=== PATIENT | female | born 1985 | race Caucasian/White ===

== ENCOUNTER → 2018-04-03 10:01 | Outpatient (CLI) | payer OTHER, SELFPAY ==
--- NOTE | 2018-04-03 10:01 | DT_ITS ---
This patient was seen during an EMR downtime March 27, 2018 - April 03, 2018. This patient may have a combination of paper and electronic documentation or all paper documentation. All documentation is viewable within the e-chart portion of [facility] for each patient visit.
== END ==
PROVIDERS: Visit Provider Obstetrics & Gynecology
DX: N91.2 Amenorrhea, unspecified (principal)
CPT/HCPCS: 36415; 84702

== ENCOUNTER → 2018-04-18 11:27 | Outpatient (CLI) | payer OTHER, SELFPAY ==
[2018-04-18 15:19] LABS: Chlamydia Trachomatis by PCR Negative (Negative); Neisserai gonorrhoeae by PCR Negative (Negative); Probe Check PASS; Sample Adequacy Control PASS; Specimen Processing Control PASS
[2018-04-20 08:57] LABS: HPV APTIMA, High Risk Negative (Negative)
== END ==
PROVIDERS: Visit Provider Obstetrics & Gynecology
DX: Z32.01 Encounter for pregnancy test, result positive (principal); Z12.4 Encounter for screening for malignant neoplasm of cervix; Z11.3 Encounter for screening for infections with a predominantly sexual mode of transmission
CPT/HCPCS: 87491; 87591; 88175; G0145

== ENCOUNTER → 2018-05-19 13:50 | Outpatient (CLI) | payer OTHER, SELFPAY ==
[2018-05-19 15:51] LABS: Color, Urine Yellow (Yellow); Glucose, Dipstick 250 mg/dl (Normal); Ketone-Dipstick 5 mg/dl (Negative); Leukocyte Esterase-Dipstick Negative /ul (Negative); Nitrite-Dipstick Negative (Negative); Occult Blood-Urine Negative /ul (Negative); Protein-Dipstick 15 mg/dl (Negative); Urine Bilirubin Dipstick Negative (Negative); Urine Clarity Clear (Clear); Urine Urobilinogen Normal (Normal)
[2018-05-19 16:17] LABS: Thyroid Stim Hormone (TSH) 0.53 uIU/mL (0.358-3.74)
[2018-05-19 16:30] LABS: Absolute Lymphocyte Count 1.36 X10^3/ul (0.83-4.51); Absolute Neutrophil Count 7.2 X10^3/uL (2.0-7.7); Basophil# 0.01 X10^3/uL; Basophil% 0.1 % (0-1); Eosinophil# 0.06 X10^3/uL; Eosinophils% 0.7 % (0-5); Hematocrit 35.2 % (37-47); Hemoglobin 12.1 g/dl (12.0-15.0); Lymphocyte # 1.36 X10^3/ul (4.0); Lymphocyte % 14.8 % (19-41); Mean Corp Hgb Conc 34.4 g/gl (32-36); Mean Corpuscular Hgb 30.5 pg (27.0-32.0); Mean Corpuscular Volume 88.7 fL (81-99); Mean Platelet Vol. 11.3 fl (6.2-12.0); Monocyte# 0.57 X10^3/uL; Monocyte% 6.2 % (0-10); Neutrophil # 7.16 X10^3/uL (2.7-7.7); Neutrophil % 78.1 % (47-70); Platelet Count 212 K/mm3 (150-450); RBC Distribution Width CV 11.8 % (11.6-14.6); RBC Distribution Width SD 38.2 fl (35.1-43.9); Red Blood Count 3.97 M/mm3 (4.2-5.4); White Blood Count 9.2 K/mm3 (4.4-11.0)
[2018-05-19 16:34] LABS: Amphetamine Urine VISTA NEGATIVE (<1000 ng/mL); Barbiturate Urine VISTA NEGATIVE (< 200 ng/mL); Benzodiazepine Urine VISTA NEGATIVE (< 200 ng/mL); Cocaine Urine VISTA NEGATIVE (< 300 ng/mL); Ecstacy Urine VISTA NEGATIVE (< 500 ng/mL); Methadone Urine VISTA NEGATIVE (< 300 ng/mL); PCP Urine VISTA NEGATIVE (< 25 ng/mL); THC Urine VISTA NEGATIVE (< 50 ng/mL); Vista UDS pH Range 6
[2018-05-19 16:46] LABS: POSITIVE COUNT NO; POSITIVE DIFFERENTIAL NO; POSITIVE MORPHOLOGY NO
[2018-05-19 17:01] LABS: HIV - WCH Non-Reactive (Nonreactive); Rubella IgG 35.5 IU/mL
[2018-05-21 13:26] LABS: HEPATITIS B SURFACE AG Negative (Negative); Hep C Antibodies 0.1 s/co ratio (0.0-0.9)
[2018-05-23 14:46] LABS: Glucose 107 mg/dL (74-106)
[2018-05-23 14:58] LABS: Hemoglobin A1c 4.7 % (4.2-6.3)
[2018-05-26 00:18] LABS: Prenatal RPR NONREACTIVE (NONREACTIVE)
== END ==
PROVIDERS: Visit Provider Obstetrics & Gynecology
DX: Z34.81 Encounter for supervision of other normal pregnancy, first trimester (principal)
CPT/HCPCS: 36415; 80307; 81002; 82947; 83036; 84443; 85025; 86703; 86762; 86803; 87340

== ENCOUNTER → 2018-08-01 08:58 | Outpatient (CLI) | payer OTHER, SELFPAY ==
[2018-08-01 12:11] LABS: Free T3 2.4 pg/mL (2.18-3.98)
== END ==
PROVIDERS: Visit Provider Obstetrics & Gynecology
DX: E03.9 Hypothyroidism, unspecified (principal)
CPT/HCPCS: 36415; 84439; 84443; 84481

== ENCOUNTER → 2018-08-29 08:38 | Outpatient (CLI) | payer OTHER, SELFPAY ==
[2018-08-29 10:30] LABS: Hematocrit 36.7 % (37-47); Hemoglobin 12.1 g/dl (12.0-15.0); Mean Corpuscular Hgb 30.4 pg (27.0-32.0); Mean Corpuscular Volume 92.2 fL (81-99); Mean Platelet Vol. 11.3 fl (6.2-12.0); Platelet Count 159 K/mm3 (150-450); RBC Distribution Width CV 12.8 % (11.6-14.6); RBC Distribution Width SD 41.4 fl (35.1-43.9); Red Blood Count 3.98 M/mm3 (4.2-5.4); White Blood Count 8.9 K/mm3 (4.4-11.0)
[2018-08-29 10:31] LABS: Scan Indicated on CBC? Y/N NO
[2018-08-29 10:39] LABS: Glucose Challenge Gest 1H 50g 68 mg/dL (70-140)
== END ==
PROVIDERS: Visit Provider Obstetrics & Gynecology
DX: Z34.83 Encounter for supervision of other normal pregnancy, third trimester (principal)
CPT/HCPCS: 36415; 82950; 85027

== ENCOUNTER → 2018-10-12 13:52 | Outpatient (CLI) | payer OTHER, SELFPAY | PROVIDERS: Family Provider Family Medicine; PCP Family Medicine; Visit Provider Obstetrics & Gynecology | DX: Z36.85 Encounter for antenatal screening for Streptococcus B (principal) | CPT/HCPCS: 87081 ==

== ENCOUNTER → 2018-10-18 10:07 | Outpatient (CLI) | payer OTHER, SELFPAY ==
[2018-10-18 14:01] LABS: Thyroid Stim Hormone (TSH) 1.58 uIU/mL (0.358-3.74)
== END ==
PROVIDERS: Visit Provider Obstetrics & Gynecology
DX: O99.280 Endocrine, nutritional and metabolic diseases complicating pregnancy, unspecified trimester (principal); E03.9 Hypothyroidism, unspecified; Z3A.00 Weeks of gestation of pregnancy not specified
CPT/HCPCS: 36415; 84443

== ENCOUNTER 2018-11-10 10:10 | Inpatient (IN) | payer OTHER, SELFPAY ==
[2018-11-10 10:20] VITALS: BMI 23.1
[2018-11-10] MEDS: Lactated Ringers 1,000 ML 50 ML IV ×3 (10:44→18:07)
[2018-11-10] MEDS: Oxytocin 30 units/NS 500 ml 30 UNITS/500 ML IV.SOLN IV (11:22)
[2018-11-10 11:25] LABS: Hematocrit 33.8 % (37-47); Hemoglobin 11.1 g/dl (12.0-15.0); Mean Corp Hgb Conc 32.8 g/gl (32-36); Mean Corpuscular Hgb 29.1 pg (27.0-32.0); Mean Corpuscular Volume 88.7 fL (81-99); Mean Platelet Vol. 11.7 fl (6.2-12.0); Platelet Count 154 K/mm3 (150-450); RBC Distribution Width CV 12.6 % (11.6-14.6); RBC Distribution Width SD 39.2 fl (35.1-43.9); Red Blood Count 3.81 M/mm3 (4.2-5.4); Scan Indicated on CBC? Y/N NO; White Blood Count 7.9 K/mm3 (4.4-11.0)
[2018-11-10] MEDS: fentaNYL-bupivacaine (epidural) 100 ML BAG EPIDURAL ×2 (14:35→19:18)
[2018-11-10] MEDS: Ondansetron 4 MG/2 ML Vial IV (18:48)
[2018-11-10] MEDS: Oxytocin 30 units/NS 500 ml 30 UNITS/500 ML IV.SOLN 334 UNITS IV (20:23)
[2018-11-10] MEDS: Oxytocin 30 units/NS 500 ml 30 UNITS/500 ML IV.SOLN 167 UNITS IV (20:53)
--- NOTE | 2018-11-10 21:04 | PCM.OB.VAG ---
- Problem List (1) 39 weeks gestation of Status: Acute (2) (spontaneous vaginal delivery) Status: Acute Vaginal Delivery Method of Induction: Pitocin, Amniotomy Amniotic Membrane Rupture Type: Artificial Rupture of Membrane time: 11/10/18 1245h Amniotic Fluid Description: Clear Final BRITANY: 11/15/18 Final BRITANY Source: US <20 weeks Gestational age: 39 Weeks and 2 Days doctor who attended delivery (if requested by OB): Hernesto Corley Date of Procedure: 11/10/18 Pre-Operative Diagnosis: 39 2/7wga, Post-Operative Diagnosis: 39 2/7wga Surgery/ Procedure Performed: Spontaneous Vaginal Delivery Anesthesiologist: Vincent Edwards Type of Anesthesia: Epidural Description of Procedure: Patient was FD/+3 station on my arrival. FHR was Category II. She pushed to delivery a vigorous male infant. The was placed on the maternal abdomen and further attended by nursery personnel and the Pediatric Hospitalist. The cord was doubly clamped and cut at approximately 4 to 5 minutes of life. Cord gases and cord blood was obtained. The placenta delivered spontaneously and appeared intact on inspection. A second degree perineal laceration with vaginal extension was repaired with 3-0 Vicryl Rapide with excellent hemostasis. Sponge and needle counts were correct x 2. Presentation: Vertex Placental Delivery Description: Spontaneous Placenta Disposition: [facility] Cord Vessel Description: 3 Vessels Nuchal Cord Compression: Without compression Cord Gases drawn per routine: ABG, VBG Cord Entanglement: None Drain: Garcia to straight drain Estimated Blood Loss: 350 ml Infant A gender: Male (1 minute): 8 (5 minute): 9 Episiotomy Description: None Laceration: Midline, Perineal Extension/lac, 2nd degree Medications given after delivery: IV Pitocin Complications: None
--- NOTE | 2018-11-10 21:15 | DCINST_ITS ---
Discharge Diet: No Restrictions Discharge Activity: Return to Normal Activity, May Shower, May Take a Tub Bath Lifting Restrictions: 20 lb Call your doctor if you observe: Fever of 101 or Higher, Inability to urinate, Inability to have a bowel movement, Using more than one pad per hour, Shortness of breath, Chest pain, Calf discomfort, Uncontrolled pain Suture Line Care: Avoid Pulling/Pushing Additional Instructions: If you experience any of the following, contact your healthcare provider. * Bleeding that soaks a pad every hour for 2 hours * Fever 100.4 or higher * Unrelieved incision or abdominal pain * Swelling, redness, discharge or bleeding from your incision or episiotomy site * Your incision begins to separate * Problems urinating (including inability to urinate or burning while urinating). * Visual changes * Severe headache * Flu-like symptoms * Pain or redness in one of both of your breasts * Pain, warmth, tenderness or swelling in your legs, especially the calf area * Frequent nausea and vomiting * Symptoms of depression or anxiety If you experience any of the following, call 911 or go to the nearest Emergency Room. * Chest pain * Problems breathing * Seizure activity * Partial or complete paralysis of a body part, slurred speech, weakness or drooping of the face, or a sudden inability to walk or hold your balance Allergies/Adverse Reactions: Allergies No Known Allergies Allergy (Verified 03/19/17 14:06) Medications to take at Discharge Cholecalciferol (Vitamin D3) [Vitamin D3] 15 ml PO DAILY 03/18/17 Vits [Prenatabs FA ] 1 tab PO DAILY 03/18/17 Docusate Sodium [Colace] 100 mg PO DAILY PRN PRN #60 capsule 11/10/18 Ibuprofen 600 mg PO TID PRN #30 tablet 11/10/18 Levothyroxine [Synthroid] 25 mcg PO DAILY@0600 11/10/18 The following prescriptions were given: Docusate Sodium [Colace] 100 mg PO DAILY PRN PRN #60 capsule PRN Reason: Constipation Ibuprofen 600 mg PO TID PRN #30 tablet PRN Reason: Pain Please Follow Up With: Zahra Dooley MD When: 7-10 days and 6 weeks Primary Care Physician: Johan Tolliver DO [Primary Care Provider] - Test Results: Test results from this visit will be discussed in further detail at your follow- up appointment, if applicable.
[2018-11-10] MEDS: 0.9% Saline Lock 10 ML Syringe IV (21:51)
[2018-11-11] VITALS: BP 128/86; PULSE 86; RESP 16; TEMP 36.3; O2SAT 100
[2018-11-11 03:50] VITALS: BP 117/65; PULSE 77; RESP 16; TEMP 36.7
[2018-11-11] MEDS: Ibuprofen 600 MG Tablet PO ×3 (04:01→20:45)
[2018-11-11 08:05] VITALS: BP 140/93; PULSE 80; RESP 16; TEMP 36.6
[2018-11-11] MEDS: Senna/Docusate Sodium 1 Tablet PO (08:19)
[2018-11-11] MEDS: Levothyroxine 25 MCG TABLET PO (08:19)
[2018-11-11] MEDS: Acetaminophen 325 MG Tablet PO ×2 (08:19→17:22)
--- NOTE | 2018-11-11 10:37 | PCM.PN.OB ---
Patient Problems: Active and Suspected Problems 39 weeks gestation of (Acute) (spontaneous vaginal delivery) (Acute) Subjective: No issues overnight. Infant latched and nurses well. Perineum is sore, but pain manageable. OOB and no difficulty voiding. Denies heavy lochia. Objective: AVSS - Physical Exam General: Alert, Oriented x3, Cooperative, No apparent distress HEENT: Atraumatic, Normocephalic Lungs: Clear to auscultation, Normal air movement Cardiovascular: Regular rate, Regular Rhythm, Normal S1, Normal S2 Abdomen: Bowel Sounds Present, Soft, Non Tender, Non-Distended, - - Fundus firm and nontender, lochia scant Extremities: No edema, No Calf Tenderness Neurological: Neuro grossly intact Psych/Mental Status: Normal Affect, Appropriate, Alert and oriented to time, place, person, mood and affect Vital Signs Temp Pulse Resp BP Pulse Ox 97.9 F 80 16 140/93 H 100 11/11/18 08:05 11/11/18 08:05 11/11/18 08:05 11/11/18 08:05 11/11/18 00:00 Oxygen Delivery Method Room Air Weight: 65.9 kg Body Mass Index (BMI) 23.1 Intake and Output for Last 24 Hours 11/09/18 11/10/18 11/11/18 23:59 23:59 23:59 Intake Total 2711 / 2711 Output Total 900 / 900 2230 / 2230 Balance 1811 / 1811 -2230 / -2230 Laboratory Tests Past 24 Hrs 11/10/18 11/10/18 10:45 10:45 WBC 7.9 RBC 3.81 L Hgb 11.1 L Hct 33.8 L MCV 88.7 MCH 29.1 MCHC 32.8 RDW 12.6 RDW Differential 39.2 Plt Count 154 MPV 11.7 Blood Type O POSITIVE Antibody Screen NEGATIVE Medical Necessity - Tobacco Use Smoking Status: Never smoker Assessment/Plan All Active Problems 39 weeks gestation of (Acute) (spontaneous vaginal delivery) (Acute) Foot drop, left (Resolved) 33yo PPD#1 s/p doing well. -Rubella immune, O positive - -Routine care
[2018-11-11 12:10] VITALS: BP 135/81; PULSE 98; RESP 14; TEMP 36.8
[2018-11-11 16:10] VITALS: BP 139/84; PULSE 87; RESP 14; TEMP 36.5
[2018-11-11 19:30] VITALS: BP 142/82; PULSE 71; RESP 15; TEMP 37.2; O2SAT 100
[2018-11-12 02:57] VITALS: BP 118/83; PULSE 87; RESP 16; TEMP 36.6; O2SAT 100
[2018-11-12] MEDS: Acetaminophen 325 MG Tablet PO ×3 (02:59→18:31)
[2018-11-12] MEDS: Ibuprofen 600 MG Tablet PO ×3 (06:50→20:27)
[2018-11-12 08:55] VITALS: BP 125/92; PULSE 91; RESP 16; TEMP 36.5
[2018-11-12] MEDS: Levothyroxine 25 MCG TABLET PO (09:26)
--- NOTE | 2018-11-12 10:46 | PCM.PN.OB ---
Patient Problems: Active and Suspected Problems 39 weeks gestation of (Acute) (spontaneous vaginal delivery) (Acute) Subjective: Feels well. Denies headache, vision changes, heavy lochia, abdominal pain. Infant transferred to special care nursery overnight for hypoglycemia. Objective: avss - Physical Exam General: Alert, Oriented x3, Cooperative, No apparent distress HEENT: Atraumatic, Normocephalic Lungs: Clear to auscultation, Normal air movement Cardiovascular: Regular rate, Regular Rhythm, Normal S1, Normal S2 Abdomen: Soft, Non Tender, Non-Distended, - - Fundus firm and nontender Extremities: No edema, No Calf Tenderness Neurological: Neuro grossly intact Psych/Mental Status: Normal Affect, Appropriate, Alert and oriented to time, place, person, mood and affect Vital Signs Temp Pulse Resp BP Pulse Ox 97.7 F L 91 16 125/92 H 100 11/12/18 08:55 11/12/18 08:55 11/12/18 08:55 11/12/18 08:55 11/12/18 02:57 Oxygen Delivery Method Room Air Weight: 65.9 kg Body Mass Index (BMI) 23.1 Intake and Output for Last 24 Hours 11/10/18 11/11/18 11/12/18 23:59 23:59 23:59 Intake Total 2711 / 2711 Output Total 900 / 900 2230 / 2230 Balance 1811 / 1811 -2230 / -2230 Medical Necessity - Tobacco Use Smoking Status: Never smoker Assessment/Plan All Active Problems 39 weeks gestation of (Acute) (spontaneous vaginal delivery) (Acute) Foot drop, left (Resolved) 33yo PPD#2 s/p doing well. -Rubella immune, O positive - -Routine care -d/c home today - will d/c to hotel if infant not discharged
[2018-11-12] MEDS: Senna/Docusate Sodium 1 Tablet PO (14:22)
[2018-11-12 14:25] VITALS: BP 116/73; PULSE 97; RESP 14; TEMP 36.4
[2018-11-12 20:26] VITALS: BP 126/80; PULSE 74; RESP 16; TEMP 36.9; O2SAT 97
--- OUTSIDE RECORDS SUMMARY | 2019-01-14 18:38 | XMS RPT_ITS ---
:1985 Author Organization OHIP Support Name Relationship Address Phone WAYCOL Unavailable [address] + [place] [address] CAMEJO LEX Unavailable [address] + [place] [address] WAYCOL Unavailable [address] + [place] [address] CAMEJO LEX Unavailable [address] + [place] [address] WAYCOL Unavailable [address] + [place] [address] CAMEJO LEX Unavailable [address] + [place] [address] WAYCOL Unavailable [address] + [place] [address] CAMEJO LEX Unavailable [address] + [place] [address] WAYCOL Unavailable [address] + [place] [address] CAMEJO LEX Unavailable [address] + [place] [address] WAYCOL Unavailable [address] + [place] [address] CAMEJO LEX Unavailable [address] + [place] [address] WAYCOL Unavailable [address] + [place] [address] CAMEJO LEX Unavailable [address] + [place] [address] WAYCOL Unavailable [address] + [place] [address] NELL LEX Unavailable [address] + [place] [address] NONE, PER Unavailable Unavailable Unavailable NONE, PER Unavailable Unavailable Unavailable SHAQUILLE CAMEJO Unavailable [address] + [place] [address] Care Team Providers Name Role Phone RACHEL , CHRISTIAN Gricelda Attending Unavailable UNRULY BLOCK, DR. DELMY Morris Primary Care Unavailable Lyn-Gabriel, Summer Attending Unavailable Lyn-Gabriel, Summer Attending Unavailable Lyn-Gabriel, Summer Attending Unavailable Unruly, Delmy Primary Care Unavailable Lyn-Gabriel, Summer Admitting Unavailable Lyn-Gabriel, Summer Attending Unavailable Lyn-Gabriel, Summer Referring Unavailable Unruly, Delmy Primary Care Unavailable Lyn-Gabriel, Summer Attending Unavailable Lyn-Gabriel, Summer Attending Unavailable Lyn-Gabriel, Summer Attending Unavailable Lyn-Gabriel, Summer Attending Unavailable PROBLEMS PROBLEMS DATE TYPE CONDITION / CODE ATTENDING STATUS SOURCE 10/18/2018 Unknown E03.9 - Soumya, Active [place] Hypothyroidism, [facility] unspecified / Hospital E03.9(ICD-10) Repository 10/18/2018 Unknown Z34.81 - Encounter Soumya Active [place] for supervision of [facility] other normal Hospital , first Repository trimester / Z34.81(ICD-10) 08/29/2018 Unknown Z34.83 - Encounter Soumya Active [place] for supervision of [facility] other normal Hospital , third Repository trimester / Z34.83(ICD-10) 04/18/2018 Unknown Z32.01 - Encounter Soumya Active [place] for test, [facility] result positive / Hospital Z32.01(ICD-10) Repository 04/18/2018 Unknown Z12.4 - Encounter Soumya Active [place] for screening for [facility] malignant neoplasm Hospital of cervix / Repository Z12.4(ICD-10) 04/18/2018 Unknown Z11.3 - Encounter Soumya Active [place] for screening for [facility] infections with a Hospital predominantly Repository sexual mode of transmission / Z11.3(ICD-10) 04/20/2018 Unknown N91.2 - Amenorrhea, Soumya Active [place] unspecified / [facility] N91.2(ICD-10) Hospital Repository PROCEDURES PROCEDURES No Procedure Records FoundRESULTS RESULTS DISCHARGE INSTRUCTION Observed: 11/12/2018 Status: F Source: [place] 10:14 AM [facility] REPOSITORY [facility] Medical Records Department [address] [place] [address] Instructions for Home/Discharge Instructions 11/10/182112 MR#: [id number] Acct: [id number] Name: LEANNA CAMEJO Rep #: [id number] : 1985 33 From: Zahra Rios MD PCP: Delmy Tolliver DO Status: ADM IN Discharge Diet: No Restrictions Discharge Activity: Return to Normal Activity, May Shower, May Take a Tub Bath Lifting Restrictions: 20 lb Call your doctor if you observe: Fever of 101 or Higher, Inability to urinate, Inability to have a bowel movement, Using more than one pad per hour, Shortness of breath, Chest pain, Calf discomfort, Uncontrolled pain Suture Line Care: Avoid Pulling/Pushing Additional Instructions: If you experience any of the following, contact your healthcare provider. * Bleeding that soaks a pad every hour for 2 hours * Fever 100.4 or higher * Unrelieved incision or abdominal pain * Swelling, redness, discharge or bleeding from your incision or episiotomy site * Your incision begins to separate * Problems urinating (including inability to urinate or burning while urinating). * Visual changes * Severe headache * Flu-like symptoms * Pain or redness in one of both of your breasts * Pain, warmth, tenderness or swelling in your legs, especially the calf area * Frequent nausea and vomiting * Symptoms of depression or anxiety If you experience any of the following, call 911 or go to the nearest Emergency Room. * Chest pain * Problems breathing * Seizure activity * Partial or complete paralysis of a body part, slurred speech, weakness or drooping of the face, or a sudden inability to walk or hold your balance Allergies/Adverse Reactions: Allergies No Known Allergies Allergy (Verified 03/19/17 14:06) Medications to take at Discharge Cholecalciferol (Vitamin D3) [Vitamin D3] 15 ml PO DAILY 03/18/17 Vits [Prenatabs FA ] 1 tab PO DAILY 03/18/17 Docusate Sodium [Colace] 100 mg PO DAILY PRN PRN #60 capsule 11/10/18 Ibuprofen 600 mg PO TID PRN #30 tablet 11/10/18 Levothyroxine [Synthroid] 25 mcg PO DAILY@0600 11/10/18 The following prescriptions were given: Docusate Sodium [Colace] 100 mg PO DAILY PRN PRN #60 capsule PRN Reason: Constipation Ibuprofen 600 mg PO TID PRN #30 tablet PRN Reason: Pain Please Follow Up With: Zahra Dooley MD When: 7-10 days and 6 weeks Primary Care Physician: Delmy Tolliver DO [Primary Care Provider] - Test Results: Test results from this visit will be discussed in further detail at your follow-up appointment, if applicable. 11/12/18 1014 <Electronically signed by Zahra Dooley MD> Date Zahra Dooley MD CC: DO Delmy Tolliver Signed OPERATIVE REPORT Observed: 11/10/2018 Status: F Source: [place] 9:09 PM [facility] REPOSITORY [facility] Medical Records Department [address] [place] [address] Operative Report 11/10/18 210 MR#: [id number] Acct: [id number] Name: LEANNA CAMEJO Rep #: [id number] : 1985 33 From: Zahra Rios MD PCP: Delmy Tolliver DO Status: ADM IN Location: [id number] - Problem List (1) 39 weeks gestation of Status: Acute (2) (spontaneous vaginal delivery) Status: Acute Vaginal Delivery Method of Induction: Pitocin, Amniotomy Amniotic Membrane Rupture Type: Artificial Rupture of Membrane time: 11/10/18 1245h Amniotic Fluid Description: Clear Final BRITANY: 11/15/18 Final BRITANY Source: US <20 weeks Gestational age: 39 Weeks and 2 Days [place] doctor who attended delivery (if requested by OB): Hernesto Corley Date of Procedure: 11/10/18 Pre-Operative Diagnosis: 39 2/7wga, Post-Operative Diagnosis: 39 2/7wga Surgery/ Procedure Performed: Spontaneous Vaginal Delivery Anesthesiologist: Vincent Edwards Type of Anesthesia: Epidural Description of Procedure: Patient was FD/+3 station on my arrival. FHR was Category II. She pushed to delivery a vigorous male . The infant was placed on the maternal abdomen and further attended by nursery personnel and the Pediatric Hospitalist. The cord was doubly clamped and cut at approximately 4 to 5 minutes of life. Cord gases and cord blood was obtained. The placenta delivered spontaneously and appeared intact on inspection. A second degree perineal laceration with vaginal extension was repaired with 3-0 Vicryl Rapide with excellent hemostasis. Sponge and needle counts were correct x 2. Presentation: Vertex Placental Delivery Description: Spontaneous Placenta Disposition: [facility] Cord Vessel Description: 3 Vessels Nuchal Cord Compression: Without compression Cord Gases drawn per routine: ABG, VBG Cord Entanglement: None Drain: Garcia to straight drain Estimated Blood Loss: 350 ml Infant A gender: Male (1 minute): 8 (5 minute): 9 Episiotomy Description: None Laceration: Midline, Perineal Extension/lac, 2nd degree Medications given after delivery: IV Pitocin Complications: None 11/10/182108 <Electronically signed by Zahra Dooley MD> Date Zahra Dooley MD CC: DO Delmy Tolliver; Zahra Dooley MD Signed CBC-COMPLETE BLOOD CNT Collected: 11/10/2018 Status: F Source: [place] NO DIFF 10:45 AM [facility] REPOSITORY TYPE CODE TESTS RESULT OUT OF RANGE REFERENCE UNITS LAB L100.1000 4.4-11.0 K/mm3 Normal WBC 7.9 LAB L100.1200 4.2-5.4 M/mm3 Low RBC 3.81 LAB L100.1300 12.0-15.0 g/dl Low HGB 11.1 LAB L100.1400 37-47 % Low HCT 33.8 LAB L100.1500 81-99 fL Normal MCV 88.7 LAB L100.1600 27.0-32.0 pg Normal MCH 29.1 LAB L100.1700 32-36 g/gl Normal MCHC 32.8 LAB L100.1810 11.6-14.6 % Normal RDW CV 12.6 LAB L100.1820 35.1-43.9 fl Normal RDW SD 39.2 LAB L100.1900 150-450 K/mm3 Normal PLT 154 LAB L100.2000 6.2-12.0 fl Normal MPV 11.7 Performed By: #### L100.0500 #### [facility] [address] [place], [address] TYPE AND SCREEN Collected: 11/10/2018 Status: F Source: [place] 10:45 AM [facility] REPOSITORY Order Comment: Reason for Type AND Screen/Red Cells: ROUTINE TYPE CODE TESTS RESULT OUT OF RANGE REFERENCE UNITS LAB B10.0800 O Normal BLOOD TYPE GEL POSITIVE LAB B100.4000 Normal Antibody NEGATIVE Screen Performed By: #### B101.7450 #### [facility] [address] [place], [address] THYROID STIM HORMONE Collected: 10/18/2018 Status: F Source: [place] (TSH) 10:09 AM [facility] REPOSITORY TYPE CODE TESTS RESULT OUT OF RANGE REFERENCE UNITS LAB L501.9520 0.358-3.74 uIU/mL Normal TSH 1.58 Performed By: #### L501.9520 #### [facility] [address] [place], [address] Observed: 10/12/2018 Status: F Source: [place] CULTURE, GROUP B 1:54 PM [facility] STREPTOCOCCUS REPOSITORY NUSRAT Culture Group B Beta Streptococcus is not isolated. Performed By: #### M100.1800 #### [facility] [address] [place], [address] CBC-COMPLETE BLOOD CNT Collected: 08/29/2018 Status: F Source: [place] NO DIFF 8:45 AM [facility] REPOSITORY TYPE CODE TESTS RESULT OUT OF RANGE REFERENCE UNITS LAB L100.1000 4.4-11.0 K/mm3 Normal WBC 8.9 LAB L100.1200 4.2-5.4 M/mm3 Low RBC 3.98 LAB L100.1300 12.0-15.0 g/dl Normal HGB 12.1 LAB L100.1400 37-47 % Low HCT 36.7 LAB L100.1500 81-99 fL Normal MCV 92.2 LAB L100.1600 27.0-32.0 pg Normal MCH 30.4 LAB L100.1700 32-36 g/gl Normal MCHC 33.0 LAB L100.1810 11.6-14.6 % Normal RDW CV 12.8 LAB L100.1820 35.1-43.9 fl Normal RDW SD 41.4 LAB L100.1900 150-450 K/mm3 Normal PLT 159 LAB L100.2000 6.2-12.0 fl Normal MPV 11.3 Performed By: #### L100.0500 #### [facility] [address] [facility] [place], [address] GLUCOSE CHALLENGE GEST Collected: 08/29/2018 Status: F Source: [place] 1H 50G 8:45 AM [facility] REPOSITORY TYPE CODE TESTS RESULT OUT OF RANGE REFERENCE UNITS LAB L501.0250 70-140 mg/dL Low GLU GEST 68 50g 1H Performed By: #### L501.0250 #### [facility] [address] [place], [address] FREE T3 Collected: 08/01/2018 Status: F Source: [place] 9:06 AM [facility] REPOSITORY TYPE CODE TESTS RESULT OUT OF RANGE REFERENCE UNITS LAB L501.97835 2.18-3.98 pg/mL Normal FREE T3 2.4 Performed By: #### L501.69583, L501.9520, L506.0400 #### [facility] [address] [place], [address] THYROID STIM HORMONE Collected: 08/01/2018 Status: F Source: [place] (TSH) 9:06 AM [facility] REPOSITORY TYPE CODE TESTS RESULT OUT OF RANGE REFERENCE UNITS LAB L501.9520 0.358-3.74 uIU/mL Normal TSH 1.20 Performed By: #### L501.43543, L501.9520, L506.0400 #### [facility] [address] [place], [address] T4 FREE DIRECT Collected: 08/01/2018 Status: F Source: [place] 9:06 AM [facility] REPOSITORY TYPE CODE TESTS RESULT OUT OF RANGE REFERENCE UNITS LAB L506.0400 0.76-1.46 ng/dL Normal T4 FREE 1.00 DIRECT Performed By: #### L501.05118, L501.9520, L506.0400 #### [facility] [address] [place], [address] HEMOGLOBIN A1C Collected: 05/23/2018 Status: F Source: [place] 1:52 PM [facility] REPOSITORY Order Comment: PLEASE PULL H135 AND ADD A1C TO PREVIOUS BLOOD DRAWN. TYPE CODE TESTS RESULT OUT OF RANGE REFERENCE UNITS LAB L501.9985 4.2-6.3 % Normal HGB A1C 4.7 Performed By: #### L501.9985 #### [facility] [address] [place], [address] URINE DRUG SCREEN Collected: 05/19/2018 Status: F Source: [place] (VISTA) 1:52 PM [facility] REPOSITORY Order Comment: List of Drugs Taken or Suspected? UNK TYPE CODE TESTS RESULT OUT OF RANGE REFERENCE UNITS LAB L505.0075 TO BE Normal CONFIRMED Result Comment: CONFIRMATORY TESTING FOR ALL POSITIVE URINE DRUG SCREEN RESULTS WILL ONLY BE SENT OUT UPON PHYSICIAN ORDER. VISTA Urine Drug Screen methods provide only preliminary analytical test results. A more specific alternate chemical method must be used in order to obtain a confirmed analytical result. Gas chromatography/mass spectrometery (GC/MS) is the preferred confirmatory method. Clinical consideration and professional judgement should be applied to any drug of abuse test result, particularly when preliminary positive results are used. URINE TCA TESTING MUST BE ORDERED SEPARATELY. USE TEST MNEMONIC: [facility] LAB L505.5005 VISTA UDS PH 6 Normal LAB L505.5015 <1000 ng/mL AMPHETAMINES Normal NEGATIVE LAB L505.5025 < 200 ng/mL BARBITIURATES Normal NEGATIVE LAB L505.5035 < 200 ng/mL BENZODIAZIPINE Normal NEGATIVE LAB L505.5045 < 300 ng/mL COCAINE Normal NEGATIVE LAB L505.5055 < 500 ng/mL ECSTACY Normal NEGATIVE LAB L505.5065 < 300 ng/mL METHADONE Normal NEGATIVE LAB L505.5075 < 300 ng/mL OPIATES Normal NEGATIVE LAB L505.5085 < 25 ng/mL PCP Normal NEGATIVE LAB L505.5095 < 50 ng/mL THC Normal NEGATIVE Performed By: #### L505.5000 #### [facility] [address] [place], [address] URINALYSIS, ROUTINE Collected: 05/19/2018 Status: F Source: [place] (DIPSTICK) 1:52 PM [facility] REPOSITORY Order Comment: How was Urine Obtained? Urine, Random TYPE CODE TESTS RESULT OUT OF RANGE REFERENCE UNITS LAB L400.3000 Yellow COLOR Normal Yellow LAB L400.3050 Clear Normal CLARITY Clear LAB L400.3200 Normal mg/dl High GLUCOSE, UR 250 LAB L400.3300 Negative mg/dL Normal BILIRUBIN URINE Negative LAB L400.3400 Negative mg/dl High 5 KETONE UR LAB L400.3465 1.002-1.030 Normal SP.GR. DIPSTX 1.020 LAB L400.3550 5.0 - 8.0 pH UR Normal 5.0 LAB L400.3600 Negative mg/dl High PROT 15 DIPSTX LAB L400.3700 Normal mg/dl Normal UROBILI Normal LAB L400.3750 Negative Normal NITRITE UR Negative LAB L400.3780 Negative /ul Normal OCCULT BLOOD-UR Negative LAB L400.3800 Negative /ul LEUK Normal ESTERASE Negative Performed By: #### L400.2010 #### [facility] [address] [facility] [place], [place], [address] THYROID STIM HORMONE Collected: 05/19/2018 Status: F Source: [place] (TSH) 1:52 PM [facility] REPOSITORY Order Comment: PLEASE ADD TO BLOOD IN LAB. RACK FG4 4 L TYPE CODE TESTS RESULT OUT OF RANGE REFERENCE UNITS LAB L501.9520 0.358-3.74 uIU/mL Normal TSH 0.53 Performed By: #### L501.9520, L501.0100 #### [facility] [address] [facility], [address] GLUCOSE Collected: 05/19/2018 Status: F Source: [place] 1:52 PM [facility] REPOSITORY Order Comment: PLEASE ADD TO BLOOD IN LAB. RACK FG4 4 L TYPE CODE TESTS RESULT OUT OF RANGE REFERENCE UNITS LAB L501.0100 74-106 mg/dL High GLU 107 Result Comment: Fasting Glucose result from 100 to 125 mg/dL suggests IMPAIRED HOMEOSTASIS per A.D.A. criteria. Please note revised GLUCOSE reference range effective 2017. Performed By: #### L501.9520, L501.0100 #### [facility] [address] [place], [address] CBC W/DIFF, AUTOMATED Collected: 05/19/2018 Status: F Source: [place] 1:52 PM [facility] REPOSITORY TYPE CODE TESTS RESULT OUT OF RANGE REFERENCE UNITS LAB L100.1000 4.4-11.0 K/mm3 Normal WBC 9.2 LAB L100.1200 4.2-5.4 M/mm3 Low RBC 3.97 LAB L100.1300 12.0-15.0 g/dl Normal HGB 12.1 LAB L100.1400 37-47 % Low HCT 35.2 LAB L100.1500 81-99 fL Normal MCV 88.7 LAB L100.1600 27.0-32.0 pg Normal MCH 30.5 LAB L100.1700 32-36 g/gl Normal MCHC 34.4 LAB L100.1810 11.6-14.6 % Normal RDW CV 11.8 LAB L100.1820 35.1-43.9 fl Normal RDW SD 38.2 LAB L100.1900 150-450 K/mm3 Normal PLT 212 LAB L100.2000 6.2-12.0 fl Normal MPV 11.3 LAB L100.2100 47-70 % High NEUT% 78.1 LAB L100.2200 19-41 % Low LY% 14.8 LAB L100.2300 0-10 % Normal MONO% 6.2 LAB L100.2400 0-5 % Normal EO% 0.7 LAB L100.2500 0-1 % Normal BASO% 0.1 LAB L100.2550 0.0-0.9 % Normal IM GRAN % 0.100 Result Comment: IG% - Immature Granulocytes (promyelocytes, myelocytes and metamyelocytes) > 1% indicates that a LEFT SHIFT is Present. LAB L100.2620 2.0-7.7 X10 3/uL Normal Absolute Neut 7.2 LAB L100.2720 0.83-4.51 X10 3/ul Normal Absolute Lymph 1.36 Performed By: #### L100.0100 #### [facility] [address] [facility] [place], [place], [address] RUBELLA IGG Collected: 05/19/2018 Status: F Source: [place] 1:52 PM [facility] REPOSITORY TYPE CODE TESTS RESULT OUT OF RANGE REFERENCE UNITS LAB L509.4000 IU/mL Normal Rubella IgG 35.5 Result Comment: Antibody results Interpretation of Immune Status < 5 IU/ml Presumed Non-immune 5 - < 10 IU/ml Equivocal > or = 10 IU/ml Presumed Immune Performed By: #### L509.4000, L3890.6005 #### [facility]. [facility] [address] HIV - [facility] Collected: 05/19/2018 Status: F Source: [place] 1:52 PM [facility] REPOSITORY TYPE CODE TESTS RESULT OUT OF RANGE REFERENCE UNITS LAB L3890.6005 Nonreactive Normal HIV - [facility] Non-Reactive Performed By: #### L509.4000, L3890.6005 #### [facility] [place], [place], [id number] T AND S-NO Collected: 05/19/2018 Status: F Source: [place] CHARGE W/PNP 1:52 PM [facility] REPOSITORY Order Comment: Reason for Type AND Screen/Red Cells: Surgery? N TYPE CODE TESTS RESULT OUT OF RANGE REFERENCE UNITS LAB B10.0800 O Normal BLOOD POSITIVE TYPE GEL LAB B100.4050 Normal Ab SCREEN NEGATIVE GEL Performed By: #### B100.7550 #### [facility] [place], [place], [id number] HEPATITIS B SURFACE Collected: 05/19/2018 Status: F Source: [place] AG 1:52 PM [facility] REPOSITORY TYPE CODE TESTS RESULT OUT OF RANGE REFERENCE UNITS LAB L3100.0400 Negative Normal HB Negative SURF AG Result Comment: Performed at: [address], [place] [id number] Exploitation Analyst: Pipe Beckham PhD, Phone: [phone] Performed By: #### L3100.0390, L3100.0625 #### [facility] (refer to report for specific site) refer to report for address and phone number HEPATITIS C ANTIBODIES Collected: 05/19/2018 Status: F Source: [place] 1:52 PM [facility] REPOSITORY TYPE CODE TESTS RESULT OUT OF RANGE REFERENCE UNITS LAB L3100.0650 0.0-0.9 s/co ratio Normal HEP C AB 0.1 Result Comment: Negative: < 0.8 Indeterminate: 0.8 - 0.9 Positive: > 0.9 The CDC recommends that a positive HCV antibody result be followed up with a HCV Nucleic Acid Amplification test (322698). Performed By: #### L3100.0390, L3100.0625 #### [facility] (refer to report for specific site) refer to report for address and phone number RPR Collected: 05/19/2018 Status: F Source: [place] 1:52 PM [facility] REPOSITORY TYPE CODE TESTS RESULT OUT OF REFERENCE UNITS RANGE LAB L700.5100 NONREACTIVE Normal RPR NONREACTIVE Performed By: #### L700.5100 #### [facility] [address] [place], [place], [address] CT/NG [facility] BY PCR Collected: 04/18/2018 Status: F Source: [place] 9:30 AM [facility] REPOSITORY TYPE CODE TESTS RESULT OUT OF RANGE REFERENCE UNITS LAB L8200.2100 Negative Normal Chlam Negative Trac PCR LAB L8200.2200 Negative Normal NG by Negative PCR Performed By: #### L8200.2000 #### [facility] [address] [facility] [place], [place], [address] PAP IG HPV APTIMA Collected: 04/18/2018 Status: F Source: [place] 16/18,45 9:30 AM [facility] REPOSITORY Order Comment: CYTOLOGY INFORMATION: - CLINICAL INFORMATION: - DATE LMP/MENOPAUSE: 02/08/18 LMP - COLLECTION VIAL: Thin Prep Vial - CORD CUTTER SOURCE: CERVICAL/ENDOCERVICAL - COLLECTION TECHNIQUE: BRUSH/SPATULA Specimen Comment: [id number] Specimen Comment: No. of containers..01 ThinPrep Vial TYPE CODE TESTS RESULT OUT OF RANGE REFERENCE UNITS LAB L7400.0800 . Normal DIAGN Comment Result Comment: NEGATIVE FOR INTRAEPITHELIAL LESION AND MALIGNANCY. LAB L7400.0900 . Normal ADEQ Comment Result Comment: Satisfactory for evaluation. Endocervical and/or squamous metaplastic cells (endocervical component) are present. LAB L7400.1400 . Normal PERFORM Comment Result Comment: Kandi Felipe, Principal Solutions Architect LAB L7400.2575 . Normal TEST METHOD Comment Result Comment: This liquid based ThinPrep(R) pap test was screened with the use of an image guided system. LAB L7400.2600 . Normal . COMM LAB L7400.2700 . Normal PAPSMR Comment Result Comment: The Pap smear is a screening test designed to aid in the detection of premalignant and malignant conditions of the uterine cervix. It is not a diagnostic procedure and should not be used as the sole means of detecting cervical cancer. Both false-positive and false-negative reports do occur. LAB L7400.2760 Negative Normal HPV APTIMA, Negative HR Result Comment: This test detects fourteen high-risk HPV types (16/18/31/33/35/39/45/ 51/52/56/58/59/66/68) without differentiation. Performed at: - [facility] [id number] Exploitation Analyst: Elva Pitts MD, Phone: [phone] Performed at: =[facility] [id number] Exploitation Analyst: Elva Pitts MD, Phone: [phone] Performed By: #### L7400.0280 #### [facility] (refer to report for specific site) refer to report for address and phone number DOWNTIME REPORT Observed: 04/13/2018 Status: F Source: [place] 2:11 PM [facility] REPOSITORY [facility] Medical Records Department [address] [place] [address] Downtime Report MR#: [id number] Acct: [id number] Name: NELLLEANNA Rep #: [id number] : 1985 33 From: [place] PCP: Status: REG CLI This patient was seen during an EMR downtime March 27, 2018 - April 03, 2018. This patient may have a combination of paper and electronic documentation or all paper documentation. All documentation is viewable within the e-chart portion of [employer] for each patient visit. HCG TITER QUANT., Collected: 04/03/2018 Status: F Source: [place] SERUM 10:09 AM [facility] REPOSITORY TYPE CODE TESTS RESULT OUT OF RANGE REFERENCE UNITS LAB L700.8000 <9 non-preg mIU/mL High HCG 94173 QUANT. Performed By: #### L700.8000 #### [facility] [address] [place], [place], [address] CMP Collected: 03/31/2018 Status: F Source: [facility] 9:20 AM [facility] REPOSITORY TYPE CODE TESTS RESULT OUT OF REFERENCE UNITS RANGE LAB GLU(LOINC) 70-105 mg/dL Glucose Level 85 LAB NA(LOINC) 136-146 mEq/L Sodium Level 137 LAB K(LOINC) 3.5-5.1 mEq/L Potassium Level 4.6 LAB CL(LOINC) 98-107 mEq/L Chloride 104 LAB CO2(LOINC) 22-29 mEq/L CO2 28 LAB EBAL(LOINC mEq/L ) Electrolyte Balance 5.0 LAB BUN(LOINC) 7.0-18.0 mg/dL BUN 11.5 LAB CRE(LOINC) 0.6-1.2 mg/dL Creatinine Lvl (s) 0.8 LAB BC(LOINC) 7-27 ratio BUN/Creatinine 14 Ratio LAB CA(LOINC) 8.4-10.2 mg/dL Calcium Lvl 9.3 LAB PROT(LOINC 6.0-8.3 G/dL ) Total Protein 6.4 LAB ALB(LOINC) 3.5-5.0 G/dL Albumin Level 4.2 LAB GLB(LOINC) G/dL Globulin 2.2 LAB AG(LOINC) 1.1-2.5 ratio A/G Ratio 1.9 LAB BILT(LOINC 0.2-1.0 mg/dL ) Bili Total High 1.3 LAB AP(LOINC) 40-135 IU/L Alk Phos 97 LAB AST(LOINC) 10-40 IU/L AST/SGOT 15 LAB ALT(LOINC) 10-35 IU/L ALT/SGPT 12 Performed By: #### CMP, GFR, TSH #### [place] [address] [place], [place] [address] #### VIDH #### [place] [id number] [place] [address] .GFR Collected: 03/31/2018 Status: F Source: [facility] 9:20 AM [facility]ATION REPOSITORY TYPE CODE TESTS RESULT OUT OF REFERENCE UNITS RANGE LAB GFRAA(LOINC ml/min/1.73 ) sqm GFR 109 Israeli Result Comment: GFR Population mean for , Non- Americans Ages 20-29 = 116 mL/min/1.73 sq.m. Ages 30-39 = 107 mL/min/1.73 sq.m. Ages 40-49 = 99 mL/min/1.73 sq.m. Ages 50-59 = 93 mL/min/1.73 sq.m. Ages 60-69 = 85 mL/min/1.73 sq.m. Ages 70+ = 75 mL/min/1.73 sq.m. Chronic Kidney Disease: Less than 60 mL/min/1.73 square meters End Stage Renal Disease: Less than 15 mL/min/1.73 square meters LAB GFRNO(LOINC) ml/min/1.73sqm GFR Non- >60 Result Comment: GFR Population mean for , Non- Americans Ages 20-29 = 116 mL/min/1.73 sq.m. Ages 30-39 = 107 mL/min/1.73 sq.m. Ages 40-49 = 99 mL/min/1.73 sq.m. Ages 50-59 = 93 mL/min/1.73 sq.m. Ages 60-69 = 85 mL/min/1.73 sq.m. Ages 70+ = 75 mL/min/1.73 sq.m. Chronic Kidney Disease: Less than 60 mL/min/1.73 square meters End Stage Renal Disease: Less than 15 mL/min/1.73 square meters Performed By: #### CMP, GFR, TSH #### [place] [place], [place] [address] #### VIDH #### [place] [address] VIDH Collected: 03/31/2018 Status: F Source: [facility] 9:20 AM [facility] [place] REPOSITORY TYPE CODE TESTS RESULT OUT OF RANGE REFERENCE UNITS LAB VIDH(LOINC) ng/mL Vit. D 45 25-Hydroxy Result Comment: Interpretive Values Based on Total 25(OH)D: Severe Deficiency <20 ng/mL Mild to Moderate Deficiency 20-30 ng/mL Optimum Levels 30-100 ng/mL Toxicity Possible >100 ng/mL Performed By: #### CMP, GFR, TSH #### [place] [address] #### VIDH #### [place] [address] TSH Collected: 03/31/2018 Status: F Source: [facility] 9:20 AM [facility] [place] REPOSITORY TYPE CODE TESTS RESULT OUT OF RANGE REFERENCE UNITS LAB TSH(LOINC) 0.27-4.20 mcIU/mL TSH 0.76 Performed By: #### CMP, GFR, TSH #### [place] [address] #### VIDH #### [place] [address] ALLERGIES ALLERGIES DATE TYPE / CODE NAME / CODE REACTION SEVERITY SOURCE 03/19/2017 Drug No Known Unknown [facility] Allergy/4160 Allergies/F00 [facility] [address](SNOMED [id number](RXNOR Repository CT) M) ENCOUNTERS ENCOUNTERS ADMIT/DISCHARGE ACCOUNT NUMBER ADMITTING ENCOUNTER LOCATION SOURCE CLASS 11/10/2018/11/12/19 [id number] [facility] Inpatient [facility] summer Encounter [facility] ding:WPRoom: Repository [id number]: 1 10/18/2018 [id number] Ambulatory [facility] ding:LABSPEC Repository 10/12/2018 [id number] [facility] ding:WOBLAB Repository 08/29/2018 [id number] [facility] ding:WOBLAB Repository 08/01/2018 [id number] [facility] ding:WOBLAB Repository 05/19/2018 [id number] Ambulatory [facility] ding:WOBLAB Repository 04/18/2018 [id number] Ambulatory [facility] ding:LABSPEC Repository 04/03/2018 [id number] Ambulatory [facility] ding:WOBLAB Repository 03/31/2018/03/31/20 [id number] Ambulatory [address] ding:OLAB [facility] Repository PAYERS PAYERS ENCOUNTER GUARANTOR PAYER SUBSCRIBER SOURCE 11/10/2018 LEANNA [place] Primary LEX WOLFDOB: [place] [id number] [address] Insurance:MEDICAL [id number] [address]Hbg: (330) Number: Repository [phone] () [id number] Date:0172-16-27CC [place] [phone]: 11/10/2018 Secondary NOT GIVENUNK [place] Insurance:SELF PAY [facility] Number: Effective Repository Date:2018-09-26 10/18/2018 LEANNA [place] Primary LEX WOLFDOB: [place] [id number] [place]IM[place] Insurance:MEDICAL [id number] [address]Aen: (330) Number: Repository [phone] () [id number] Date:4848-08-87PK[place] [phone]: 10/18/2018 Secondary NOT GIVENUNK [place] Insurance:SELF PAY [facility] Number: Effective Repository Date:2018-10-18 10/12/2018 LEANNA [place] Primary LEX WOLFDOB: [place] [id number] [place]IM[place] Insurance:MEDICAL [id number] [address]Otd: (330) Number: Repository [phone] () [id number] Date:5487-72-21DP [place] [id number]: 10/12/2018 Secondary NOT GIVENUNK [place] Insurance:SELF PAY [facility] Number: Effective Repository Date:2018-10-12 08/29/2018 Leanna Rivero2 Primary LEX WOLFDOB: [place] [address] Insurance:MEDICAL [id number] Community Hospital [address]Jfe: (330) Number: Repository [phone] () [id number] Date:6247-37-63TU [address] [phone]: 08/29/2018 Secondary NOT GIVENUNK [place] Insurance:SELF PAY [facility] Number: Effective Repository Date:2018-08-29 08/01/2018 Leanna Rivero2 Primary LEX WOLFDOB: [place] [address] Insurance:MEDICAL [id number] Community Hospital [address]Ipe: (330) Number: Repository [phone] () [id number] Date:[id number] [address] [phone]: 08/01/2018 Secondary NOT GIVENUNK [place] Insurance:SELF PAY [facility] Number: Effective Repository Date:2018-08-01 05/19/2018 Leanna Rivero2 Primary LEX WOLFDOB: [place] [address] Insurance:MEDICAL [id number] Community Hospital [address]Yxb: (330) Number: Repository [phone] () [id number] Date:3919-52-53IH [address] [address]RD: 05/19/2018 Secondary NOT GIVENUNK [place] Insurance:SELF PAY [facility] Number: Effective Repository Date:2018-05-19 04/18/2018 Leanna Rivero2 Primary LEX WOLFDOB: [place] [address] Insurance:MEDICAL [id number] Community Hospital [address]Pso: (330) Number: Repository [phone] () [id number] Date:5121-48-73SF [address] [place] [phone]: 04/18/2018 Secondary NOT GIVENUNK [place] Insurance:SELF PAY [facility] Number: Effective Repository Date:2018-04-18 04/03/2018 Leanna Cixc102 Primary LEX WOLFDOB: [place] [address] Insurance:MEDICAL [id number] Community Hospital [address]Wka: (330) Number: Repository [phone] () [id number] Date:5159-70-17NT[place] [id number]: 04/03/2018 Secondary NOT GIVENUNK [place] Insurance:SELF PAY [facility] Number: Effective Repository Date:2018-04-03 03/31/2018 LEANNA [place] Primary LEX T WOLFDOB: [facility] WOLFDOB: Insurance:MEDICAL [id number] [facility] Number: [place], [place] [id number]: [email or web address] Date:2018-03-31 [phone] COMTel: [phone] () () Name:[facility] NIK [phone] () [address] [place] [address]SS:
== END 2018-11-12 20:45 | disposition home or self-care (01) | DRG 807 ==
PROVIDERS: Admitting Provider Obstetrics & Gynecology; Family Provider Family Medicine; PCP Family Medicine; Referring Provider Obstetrics & Gynecology; Visit Provider Obstetrics & Gynecology
DX: O99.284 Endocrine, nutritional and metabolic diseases complicating childbirth (principal); Z37.0 Single live birth; E03.9 Hypothyroidism, unspecified; Z3A.39 39 weeks gestation of pregnancy; O70.1 Second degree perineal laceration during delivery
CPT/HCPCS: 59025; 59050; 85027; 86850; 86900; 99218; J7120; A4216; G0378; J2405

== ENCOUNTER → 2018-12-18 09:19 | Outpatient (CLI) | payer OTHER, SELFPAY ==
[2018-12-18 13:53] LABS: Free T3 3.1 pg/mL (2.18-3.98); T4 Free Direct 1.09 ng/dL (0.76-1.46); Thyroid Stim Hormone (TSH) 1.13 uIU/mL (0.358-3.74)
== END ==
PROVIDERS: Visit Provider Obstetrics & Gynecology
DX: E03.9 Hypothyroidism, unspecified (principal)
CPT/HCPCS: 36415; 84439; 84443; 84481

== ENCOUNTER → 2021-02-26 | Outpatient (CLI) | payer OTHER, SELFPAY ==
[2021-03-02 12:56] LABS: HPV APTIMA, High Risk Negative (Negative)
== END | disposition home or self-care (01) ==
LOC: LABSPEC 10:51
PROVIDERS: Visit Provider Obstetrics & Gynecology
DX: Z12.4 Encounter for screening for malignant neoplasm of cervix (principal)
CPT/HCPCS: 87624; 88175; G0145

== ENCOUNTER → 2021-02-27 08:49 | Outpatient (CLI) | payer OTHER, SELFPAY ==
--- NOTE | 2021-02-27 08:57 | BI_ITS ---
MAMMOGRAPHY - BILATERAL DIAGNOSTIC REASON FOR EXAM: Female, 35 years old. Palpable lump in the upper outer quadrant of the right breast. PERTINENT HISTORY: Non-contributory. TECHNIQUE: Digital bilateral breast kathy (3D mammographic acquisition) in the CC and MLO projections. 2-D mediolateral oblique (MLO) and craniocaudad (CC) views of both breasts were obtained. CAD: Full Field Digital Mammography with Computer Added Detection was performed. COMPARISON: None. Baseline examination. FINDINGS: Breast Composition: The breasts are extremely dense, which lowers the sensitivity of mammography. There are no dominant masses or suspicious calcifications. No other significant abnormalities are identified. BI/DIAG MAMM W/CAD, BILAT IMPRESSION: Negative diagnostic mammogram. With the patient''s history of a palpable lump in the upper outer quadrant of the right breast, correlation with ultrasound is recommended. ASSESSMENT CATEGORY: BIRADS Category 0: Incomplete. Need additional imaging evaluation. A letter regarding these results will be sent to the patient by the facility within 30 days. Approximately 10% of breast cancers are not detected by mammography. A normal mammogram should not delay biopsy of a clinically suspicious abnormality. Electronically Signed: Devin Hickman MD at 10:08 EDT , Service support ,
--- NOTE | 2021-02-27 08:58 | US_ITS ---
STUDY: ULTRASOUND BREAST - RIGHT REASON FOR EXAM: Female, 35 years old. Palpable lump in the right breast. TECHNIQUE: Axial and longitudinal images of the RIGHT breast were performed with a high resolution ultrasound transducer. # OF IMAGES: 35 COMPARISON: Comparison is made with prior mammogram done earlier in the day. FINDINGS: RIGHT Breast: The upper outer quadrant of the right breast was examined by ultrasound. There is dense fibroglandular tissue. Incidental note is made of a 3 mm x 7 mm x 3 mm benign appearing lymph node at the 10 o''clock position of the breast at 8 cm from nipple. US/Breast Limited Unilateral IMPRESSION: Dense fibroglandular tissue in the upper-outer quadrant of the right breast. Incidental note is made of a 3 mm x 7 mm x 3 mm benign appearing lymph node at the 10 o''clock position of the breast at 8 cm from the nipple. ASSESSMENT CATEGORY: BIRADS Category 2: Benign. A letter regarding these results will be sent to the patient by the facility within 30 days. Electronically Signed: Devin Hickman MD at 11:13 EDT , Service support ,
== END ==
PROVIDERS: PCP Family Medicine; Referring Provider Obstetrics & Gynecology; Visit Provider Obstetrics & Gynecology
DX: N63.10 Unspecified lump in the right breast, unspecified quadrant (principal)
CPT/HCPCS: 76642; 77062; 77066; G0279